=== PATIENT | female | born 1940 | race Caucasian/White ===

== ENCOUNTER → 2016-02-20 | Outpatient (CLI) | payer MEDICARE ==
--- NOTE | 2016-02-20 14:19 | US ---
EXAMINATION TYPE: US thyroid st tissue head/neck DATE OF EXAM: 02/20/2016 11:39 AM COMPARISON: NONE TECHNIQUE: Multiple sonographic images of the thyroid gland are obtained. CLINICAL HISTORY: 76-year-old female with thyroid nodule FINDINGS: Right Lobe: 4.0 x 1.5 x 2.0cm Left Lobe: 3.3 x 1.1 x 1.2cm Isthmus Thickness: 0.2cm Overall homogeneous glandular parenchyma. NODULES RIGHT: # of nodules measured on right: 2 1. 2.6 X 1.5 x 1.5 cm mixed, primarily solid nodule at the upper/mid pole with well-defined margins . This nodule is wider than tall and shows intranodular vascularity. Prior size: no prior 2. 0.5 X 0.3 x 0.4 cm ccysticth internal calcification. This noloweris wider thwell-definedshows no i anodular vasculariwider than tallize: no prino intranodular vascularityeasured on left: 1 1. 0.5 X 0.3 x 0.4 cm cyst within the lower pole. Prior size: no prino intranodular vascularitys measured in the isthmus: 0 IMPRESSION: Large 2.6 cm primarily solid nodule upper mid pole right thyroid lobe. Decision to biopsy should be m renea on a clinical basis. Some other smaller scattered benign cysts are present on both sides. SONOGRAPHIC PATTERNS, ESTIM D MALIGNANCY R AND FNA GUIDANCE FOR THYROID NODULES Sonographic Pattern: Intermediate Suspicion Ultrasound Features: Hypoechoic Solid Nodule With Smooth Margins Estimated Risk Of Malignancy, %: 10-20 FNA Size Cutoff (Largest Dimension): Recommend FNA At > 1cm
== END | disposition home or self-care (01) ==
LOC: RADUSWWP 10:19
PROVIDERS: ATTEND Internal Medicine Endocrinology, Diabetes & Metabolism
DX: E04.2 Nontoxic multinodular goiter (principal)
CPT/HCPCS: 76536